=== PATIENT | female | born 1935 | race Caucasian/White ===

== ENCOUNTER 2016-12-16 07:54 | Day surgery (SDC) | payer MEDICARE, OTHER ==
[~2016-12-16 07:54] MED LIST: Sodium Chloride 0.9% 10 ML Syringe FLUSH PRN
[2016-12-16] MEDS ORDERED: Propofol 200 MG/20 ML SDV IV ONE (10:45)
[2016-12-16 11:55] VITALS: BP 144/74
--- NOTE | 2016-12-16 13:21 | OR ---
DATE OF OPERATION: 12/16/2016 SURGEON: Donny Mcgrath MD PREOPERATIVE DIAGNOSIS: Cataract right eye. POSTOPERATIVE DIAGNOSIS: Same. OPERATION PERFORMED: Phacoemulsification of cataract right eye with placement of an Clarke, model ZCB00, 22.5 diopter, foldable, posterior chamber intraocular lens. PARKING LOT LABORER: None. DESCRIPTION OF PROCEDURE: Peribulbar anesthetic was performed using a mixture of 2% lidocaine with Wydase. The patient was prepped and draped in the usual fashion. A 3 mm fornix based conjunctival flap was performed at the 10 o'clock position. Hemostasis was obtained using diathermy, and a 2.8 mm grooved near clear corneal incision was then made. A stab incision was made into the anterior chamber at the 12 o'clock position and a second stab wound incision was made underlying the grooved near clear corneal incision. Viscoat was instilled into the anterior chamber, and a continuous tear capsulotomy was performed. Hydrodissection was accomplished with balanced salt solution, and the nucleus was removed in a divide and conquer fashion. The remaining cortical material was removed with the irrigation and aspiration unit. Viscoat was instilled into the anterior chamber, and an Clarke, model ZCB00, 22.5 diopter, foldable, posterior chamber intraocular lens was placed into the capsular bag, the haptics being positioned at the 1 and 7 o'clock positions. The residual Viscoat was removed from the anterior chamber and the anterior chamber reformed with balanced salt solution. The wound was checked and noted to be watertight. The conjunctiva was secured in its original position with diathermy. Alphagan and Maxitrol Ointment were then placed into the patient's eye. The patient tolerated the procedure well and it was without complication. Elapsed phacoemulsification time was 27.5 seconds. Postoperative instructions as related to activities as well as medications were reviewed with the patient. The patient was instructed to return to see me on the day following surgery for the first postoperative check. The patient was also instructed to contact me prior to that time if the patient were to have any problems. /[id number] DEG/MODL CC: ALBA SALMON, SUKHWINEDR LOVE, DEJAH [facility]
== END 2016-12-16 12:10 | disposition home or self-care (01) ==
LOC: FB.SDS 07:54
PROVIDERS: ATTEND Ophthalmology
DX: H26.9 Unspecified cataract (principal); I13.0 Hypertensive heart and chronic kidney disease with heart failure and stage 1 through stage 4 chronic kidney disease, or unspecified chronic kidney disease; N18.2 Chronic kidney disease, stage 2 (mild); I50.32 Chronic diastolic (congestive) heart failure; Z88.8 Allergy status to other drugs, medicaments and biological substances; E78.5 Hyperlipidemia, unspecified; E89.0 Postprocedural hypothyroidism; D63.1 Anemia in chronic kidney disease; Z98.890 Other specified postprocedural states; Z79.899 Other long term (current) drug therapy
CPT/HCPCS: 66984; A4217; C1780; J2704; J7050; 00142-QZ

== ENCOUNTER 2020-11-05 05:54 | Emergency (ER) | payer MEDICARE, OTHER ==
[2020-11-05] MEDS ORDERED: Sodium Chloride 0.9% 10 ML Syringe FLUSH PRN (06:32)
[2020-11-05] MEDS ORDERED: HYDROmorphone 2 MG/ML SDV IVPUSH ONE (06:33)
[2020-11-05] MEDS ORDERED: Ondansetron 4 MG/2 ML SDV IVPUSH ONE (06:33)
--- NOTE | 2020-11-05 06:40 | EDM.PDOC ---
<Rogelio Holden G - Last Filed: 11/05/20 06:53> ED HPI GENERAL MEDICAL PROBLEM - General Chief Complaint: Abdominal Pain Stated Complaint: PAIN Time Seen by Provider: 11/05/20 06:25 Source of Information: Reports: Patient, Old Records, RN History Limitations: Reports: No Limitations - History of Present Illness INITIAL COMMENTS - FREE TEXT/NARRATIVE: 85 yo female here with RLQ abdominal pain that began and awoke her from sleep about midnight tonight. She still has her appendix. Her only abdominal surgery was for colon CA. Has mild nausea without vomiting. Pain is worse with movement. No fever, diarrhea or constipation. No urinary sx's. She has a pHx of HTN and has not missed any of her meds. Takes most of them generally about 0730h. Onset: Today, Sudden Onset Date: 11/05/20 Onset Time: 00:00 Duration: Hour(s): (6+), Getting Worse Location: Reports: Abdomen (RLQ) Quality: Reports: Ache Severity: Moderate Improves with: Reports: Rest Worsens with: Reports: Movement Context: Reports: Other (See HPI) Associated Symptoms: Reports: Nausea/Vomiting (no vomiting). 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) (none) R abdomen, R foot to hip Pain Score (Numeric/FACES): 8 - Related Data Allergies Allergy/AdvReac Type Severity Reaction Status Date / Time LISINOPRIL AdvReac Mild BAD DREAMS Uncoded 11/05/20 06:05 Home Meds: Home Meds Verapamil HCl 360 mg PO DAILY 11/25/13 [History] atorvaSTATin [Lipitor] 20 mg PO BEDTIME 11/25/13 [History] Furosemide [Lasix] 10 mg PO DAILY 02/14/16 [History] cloNIDine [Catapres] 0.2 mg PO Q12HR 02/14/16 [History] Cholecalciferol (Vitamin D3) [Vitamin D3] 2,000 unit PO Q48H 12/15/16 [History] Acetaminophen/HYDROcodone [HYDROcodone-Acetaminophen 5-325 MG *] 1 tab PO Q4H PRN #10 each 11/05/20 [Rx] Losartan/Hydrochlorothiazide [Losartan-HCTZ 100-25 MG] 1 tab DAILY 11/05/20 [History] Multivitamin [One-Daily Multi-Vitamin] 1 each PO DAILY 11/05/20 [History] Ondansetron [Zofran ODT] 4 mg PO Q4H PRN #7 tab.dis 11/05/20 [Rx] allopurinoL [Zyloprim] 100 mg PO DAILY 11/05/20 [History] Past Medical History HEENT History: Reports: Cataract Cardiovascular History: Reports: Heart Failure, Heart Murmur, High Cholesterol, Hypertension Respiratory History: Reports: None Genitourinary History: Reports: Renal Disease IS SUPPORT ANALYST History: Reports: Musculoskeletal History: Reports: Other (See Below) Other Musculoskeletal History: OSTEOPENIA Neurological History: Reports: None Psychiatric History: Reports: None Endocrine/Metabolic History: Reports: Hypothyroidism Hematologic History: Reports: Anemia Immunologic History: Reports: None Oncologic (Cancer) History: Reports: Colon Dermatologic History: Reports: None - Infectious Disease History Infectious Disease History: Reports: Chicken Pox, Measles, Mumps - Past Surgical History Head Surgeries/Procedures: Reports: None HEENT Surgical History: Reports: Cataract Surgery, Laser Surgery GI Surgical History: Reports: Colon, Colonoscopy, EGD, Hernia Repair/Other Female Surgical History: Reports: D&C Endocrine Surgical History: Reports: Parathyroidectomy Musculoskeletal Surgical History: Reports: Carpal Tunnel Social & Family History - Caffeine Use Caffeine Use: Reports: None ED ROS GENERAL - Review of Systems Review Of Systems: See Below Constitutional: Reports: No Symptoms HEENT: Reports: No Symptoms Respiratory: Reports: No Symptoms Cardiovascular: Reports: No Symptoms GI/Abdominal: Reports: Abdominal Pain, Nausea. Denies: Black Stool, Bloody Stool, Constipation, Diarrhea, Hematochezia, Melena, Vomiting : Reports: No Symptoms Musculoskeletal: Reports: No Symptoms Skin: Reports: No Symptoms ED EXAM, GI/ABD - Physical Exam Exam: See Below Exam Limited By: No Limitations General Appearance: Alert, WD/WN, No Apparent Distress Eyes: Bilateral: Normal Appearance Ears: Normal External Exam, Normal Canal, Hearing Grossly Normal Nose: Normal Inspection, No Blood Throat/Mouth: Normal Inspection, Normal Lips, Normal Oropharynx, Normal Voice, No Airway Compromise Head: Atraumatic, Normocephalic Neck: Normal Inspection Respiratory/Chest: No Respiratory Distress, Lungs Clear, Normal Breath Sounds, No Accessory Muscle Use Cardiovascular: No Edema, Irregularly Irregular GI/Abdominal Exam: Soft, Rebound, Tender (RLQ), Abnormal Bowel Sounds (decreased ). No: Normal Bowel Sounds, Distended, Guarding, Rigid Back Exam: Normal Inspection. No: CVA Tenderness (R), CVA Tenderness (L) Extremities: Normal Inspection, Normal Range of Motion, Non-Tender, No Pedal Edema. No: Pedal Edema Neurological: Alert, Oriented, CN II-XII Intact, Normal Cognition, No Motor/Sensory Deficits Psychiatric: Normal Affect, Normal Mood Skin Exam: Warm, Dry, Intact, Normal Color, No Rash Departure - Departure Disposition: Home, Self-Care 01 Clinical Impression: Cholelithiasis, Abdominal pain Atrial fibrillation Qualifiers: Atrial fibrillation type: unspecified Qualified Code(s): I48.91 - Unspecified atrial fibrillation - Discharge Information Prescriptions: Acetaminophen/HYDROcodone [HYDROcodone-Acetaminophen 5-325 MG *] 1 tab PO Q4H PRN #10 each PRN Reason: Pain Ondansetron [Zofran ODT] 4 mg PO Q4H PRN #7 tab.dis PRN Reason: Nausea Instructions: Cholelithiasis, [id number], Abdominal Pain, Adult, [id number] Referrals: Barbara Keys SHOP DIRECTOR [Primary Care Provider] - Forms: ED Department Discharge Additional Instructions: Please read discharge instructions on Cholelithiasis/Gallstones, New Onset AFib Avoid spicy and greasy foods Zofran 4 mg every 4 hours as needed for nausea Hydrocodone 5 mg every 4 hours as needed for pain Follow up with your doctor this week to discuss treatment option for your gallstones and new onset AFIB Sepsis Event Note (ED) - Evaluation Sepsis Screening Result: No Definite Risk <Juan R Hill - Last Filed: 11/05/20 16:21> Course - Vital Signs Last Recorded V/S: Last Vital Signs Temp 36.8 C 11/05/20 05:55 Pulse 125 H 11/05/20 08:06 Resp 18 11/05/20 08:06 BP 203/81 H 11/05/20 08:06 Pulse Ox 96 11/05/20 08:06 - Orders/Labs/Meds Orders: Active Orders 24 hr Category Date Time Status Abdomen Pelvis w Cont [CT] Stat Exams 11/05/20 07:23 Taken Saline Lock Insert [OM.PC] Routine Oth 11/05/20 06:32 Ordered Labs: Laboratory Tests 11/05/20 11/05/20 11/05/20 Range/Units 06:42 06:42 06:42 WBC 5.5 (3.0-10.3) x10-3/uL RBC 4.50 (3.60-5.20) x10(6)uL Hgb 13.7 (11.4-15.5) g/dL Hct 40.8 (34.2-48.2) % MCV 90.6 (76.7-100.5) fL MCH 30.3 (23.9-33.9) pg MCHC 33.5 (31.9-34.8) g/dL RDW 13.5 (12.3-16.5) % Plt Count 310 (151-488) x10(3)uL Sodium 143 (135-145) mmol/L Potassium 3.8 (3.5-5.3) mmol/L Chloride 107 (100-110) mmol/L Carbon Dioxide 27 (21-32) mmol/L BUN 27 H (7-18) mg/dL Creatinine 1.4 H (0.55-1.02) mg/dL Est Cr Clr Drug Dosing 22.81 mL/min Estimated GFR (MDRD) 36 L (>60) BUN/Creatinine Ratio 19.3 (9-20) Glucose 103 (80-116) mg/dL Calcium 9.2 (8.6-10.2) mg/dL C-Reactive Protein < 0.2 L (0.5-0.9) mg/dL Urine Color (YELLOW) Urine Appearance (CLEAR) Urine pH (5.0-6.5) Ur Specific [place] (1.010-1.025) Urine Protein (NEGATIVE) mg/dL Urine Glucose (UA) (NORMAL) mg/dL Urine Ketones (NEGATIVE) mg/dL Urine Occult Blood (NEGATIVE) Urine Nitrite (NEGATIVE) Urine Bilirubin (NEGATIVE) Urine Urobilinogen (NEGATIVE) mg/dL Ur Leukocyte Esterase (NEGATIVE) Urine RBC (0-5) Urine WBC (0-5) Ur Squamous Epith Cells (NS,R,O) Urine Bacteria (NS) 11/05/20 Range/Units 08:46 WBC (3.0-10.3) x10-3/uL RBC (3.60-5.20) x10(6)uL Hgb (11.4-15.5) g/dL Hct (34.2-48.2) % MCV (76.7-100.5) fL MCH (23.9-33.9) pg MCHC (31.9-34.8) g/dL RDW (12.3-16.5) % Plt Count (151-488) x10(3)uL Sodium (135-145) mmol/L Potassium (3.5-5.3) mmol/L Chloride (100-110) mmol/L Carbon Dioxide (21-32) mmol/L BUN (7-18) mg/dL Creatinine (0.55-1.02) mg/dL Est Cr Clr Drug Dosing mL/min Estimated GFR (MDRD) (>60) BUN/Creatinine Ratio (9-20) Glucose (80-116) mg/dL Calcium (8.6-10.2) mg/dL C-Reactive Protein (0.5-0.9) mg/dL Urine Color Yellow (YELLOW) Urine Appearance Clear (CLEAR) Urine pH 7.0 H (5.0-6.5) Ur Specific [place] 1.010 (1.010-1.025) Urine Protein 30 H (NEGATIVE) mg/dL Urine Glucose (UA) Normal (NORMAL) mg/dL Urine Ketones Negative (NEGATIVE) mg/dL Urine Occult Blood Negative (NEGATIVE) Urine Nitrite Negative (NEGATIVE) Urine Bilirubin Negative (NEGATIVE) Urine Urobilinogen Normal (NEGATIVE) mg/dL Ur Leukocyte Esterase Moderate H (NEGATIVE) Urine RBC Not seen (0-5) Urine WBC Not seen (0-5) Ur Squamous Epith Cells Few H (NS,R,O) Urine Bacteria Few H (NS) Meds: Medications Discontinued Medications Generic Name Dose Route Start Last Admin Trade Name Freq PRN Reason Stop Dose Admin Hydralazine HCl 25 mg 11/05/20 06:57 11/05/20 07:24 Hydralazine 20 Mg/Ml Sdv IVPUSH 11/05/20 06:58 25 mg ONETIME ONE Administration Hydromorphone HCl 0.5 mg 11/05/20 06:33 11/05/20 07:00 Hydromorphone 2 Mg/Ml Sdv IVPUSH 11/05/20 06:34 0.5 mg ONETIME ONE Administration Hydromorphone HCl 1 mg 11/05/20 08:10 11/05/20 08:26 Hydromorphone 2 Mg/Ml Sdv IVPUSH 11/05/20 08:11 1 mg NOW STA Administration Lactated Ringer's 1,000 mls @ 999 mls/hr 11/05/20 07:01 11/05/20 07:10 Ringers, Lactated IV 11/05/20 08:01 999 mls/hr BOLUS ONE Administration Sodium Chloride Confirm 11/05/20 10:17 Normal Saline Administered 11/05/20 10:18 Dose 50 mls @ as directed .ROUTE .STK-MED ONE Iopamidol 75 ml 11/05/20 07:36 11/05/20 08:00 Iopamidol 755 Mg/Ml 75 Ml Bottle IV 11/05/20 07:37 75 ml ASDIRECTED ONE Administration Ketorolac Tromethamine 30 mg 11/05/20 10:11 11/05/20 10:20 Ketorolac 30 Mg/Ml Sdv IVPUSH 11/05/20 10:12 30 mg NOW STA Administration Labetalol HCl 20 mg 11/05/20 08:10 11/05/20 08:30 Labetalol 20 Mg/4 Ml Syringe IVPUSH 11/05/20 08:11 20 mg NOW STA Administration Protocol Metoclopramide HCl 10 mg 11/05/20 10:11 11/05/20 10:19 Metoclopramide 10 Mg/2 Ml Sdv IVPUSH 11/05/20 10:12 10 mg NOW STA Administration Ondansetron HCl 4 mg 11/05/20 06:33 11/05/20 06:58 Ondansetron 4 Mg/2 Ml Sdv IVPUSH 11/05/20 06:34 4 mg ONETIME ONE Administration Ondansetron HCl 4 mg 11/05/20 08:10 11/05/20 08:23 Ondansetron 4 Mg/2 Ml Sdv IVPUSH 11/05/20 08:11 4 mg NOW STA Administration Sodium Chloride 10 ml 11/05/20 06:32 Sodium Chloride 0.9% 10 Ml Syringe FLUSH ASDIRECTED PRN Keep Vein Open Departure - Departure Time of Disposition: 10:00 Condition: Good Sepsis Event Note (ED) - Focused Exam Vital Signs: Vital Signs Temp Pulse Resp BP Pulse Ox 11/05/20 08:06 125 H 18 203/81 H 96 11/05/20 07:29 85 18 128/80 97 11/05/20 07:08 97 18 211/96 H 97 11/05/20 06:44 107 H 20 202/99 H 98 11/05/20 06:31 103 H 18 219/135 H 98 11/05/20 05:55 36.8 C 90 18 232/91 H 97 - My Orders Last 24 Hours: My Active Orders 11/05/20 07:23 Abdomen Pelvis w Cont [CT] Stat - Assessment/Plan Last 24 Hours: My Active Orders 11/05/20 07:23 Abdomen Pelvis w Cont [CT] Stat
[2020-11-05] MEDS ORDERED: hydrALAZINE 20 MG/ML SDV IVPUSH ONE (06:57)
[2020-11-05] MEDS ORDERED: Lactated Ringers 1,000 ML IV ONE (07:01)
[2020-11-05] MEDS ORDERED: Iopamidol 755 Mg/ML 75 ML Bottle IV ONE (07:36)
[2020-11-05] MEDS ORDERED: HYDROmorphone 2 MG/ML SDV IVPUSH STA (08:10)
[2020-11-05] MEDS ORDERED: Labetalol 20 MG/4 ML Syringe IVPUSH STA (08:10)
[2020-11-05] MEDS ORDERED: Ondansetron 4 MG/2 ML SDV IVPUSH STA (08:10)
[2020-11-05 09:16] VITALS: BP 203/81; PULSE 125
[2020-11-05] MEDS ORDERED: Metoclopramide 10 MG/2 ML SDV IVPUSH STA (10:11)
[2020-11-05] MEDS ORDERED: Ketorolac 30 MG/ML SDV IVPUSH STA (10:11)
[2020-11-05] MEDS ORDERED: Sodium Chloride 0.9% 50 ML ONE (10:17)
== END 2020-11-05 10:55 | disposition home or self-care (01) ==
LOC: FB.ED 05:54
DX: K80.20 Calculus of gallbladder without cholecystitis without obstruction (principal); I48.91 Unspecified atrial fibrillation; I11.0 Hypertensive heart disease with heart failure; I50.9 Heart failure, unspecified; E78.00 Pure hypercholesterolemia, unspecified; E03.9 Hypothyroidism, unspecified; Z79.899 Other long term (current) drug therapy; Z88.8 Allergy status to other drugs, medicaments and biological substances
CPT/HCPCS: 36415; 74177; 80048; 81001; 85027; 86140; 96374; 96375; 96376; 99284; J0360; J1170; J1885; J2405; J2765; J3490; J7120; Q9967